=== PATIENT | male | born 1960 | race Caucasian/White ===

== ENCOUNTER → 2018-10-10 | Outpatient (CLI) | payer BC ==
--- NOTE | 2018-10-10 09:17 | US ---
EXAMINATION TYPE: US carotid duplex BILAT DATE OF EXAM: 10/10/2018 COMPARISON: NONE CLINICAL HISTORY: I10 Hypertension. vertigo, left ear fuzziness EXAM MEASUREMENTS: RIGHT: Peak Systolic Velocity (PSV) cm/sec ----- Right CCA: 83.7 ----- Right ICA: 81.1 ----- Right ECA: 101.8 ICA/CCA ratio: 1.0 RIGHT: End Diastole cm/sec ----- Right CCA: 20.2 ----- Right ICA: 22.8 ----- Right ECA: 21.5 LEFT: Peak Systolic Velocity (PSV) cm/sec ----- Left CCA: 88.9 ----- Left ICA: 91.5 ----- Left ECA: 122.6 ICA/CCA ratio: 1.0 LEFT: End Diastole cm/sec ----- Left CCA: 24.1 ----- Left ICA: 20.2 ----- Left ECA: 18.9 VERTEBRALS (direction of flow): Right Vertebral: Antegrade Left Vertebral: Antegrade Rhythm: Arrhythmia No plaque or significant stenosis. Elevated left proximal CCA. Wall thickening. IMPRESSION: No evidence for hemodynamically significant stenosis. Criteria for Assigning % of Stenosis / Diameter reduction (Estimation based on the indirect measurements of the internal carotid artery velocities (ICA PSV). 1. Normal (no stenosis)=ICA PSV < 125 cm/s: ratio < 2.0: ICA EDV<40 cm/s. 2. Less than 50% stenosis=ICA PSV < 125 cm/s: ratio < 2.0: ICA EDV<40 cm/s. 3. 50 to 69% stenosis=ICA PSV of 125 to 230 cm/s: ration 2.0 ? 4.0: ICA EDV 40-100 cm/s. 4. Greater than 70% stenosis to near occlusion= ICA PSV > 230 cm/s: ratio > 4.0: ICA EDV > 100 cm/s. 5. Near occlusion= ICA PSV velocities may be low or undetectable: variable ratio and ICA EDV. 6. Total occlusion=unable to detect flow.
== END | disposition home or self-care (01) ==
LOC: RADUSMAIN 08:28
PROVIDERS: ATTEND Family Medicine
DX: I10 Essential (primary) hypertension (principal)
CPT/HCPCS: 93880

== ENCOUNTER → 2018-10-28 | Outpatient (CLI) | payer BC ==
--- NOTE | 2018-10-28 09:12 | CT ---
EXAMINATION TYPE: CT iac wo con DATE OF EXAM: 10/28/2018 COMPARISON: HISTORY: 58-year-old male tinnitus, left ear fullness CT DLP: 150 mGycm Automated exposure control for dose reduction was used. TECHNIQUE: Contiguous high-resolution axial scanning of the temporal bones performed without contras t. Coronal reformatted images obtained. FINDINGS: There is no evident abnormality of visualized intracranial structures by thin sections noncontrast CT technique. The skull base appears normal. External auditory canals are patent. The middle ear cavities are well pneumatized. There is minimal fluid trapped within some of the anterior left mastoid air cells, refer to axial demond ge 47. Otherwise, the mastoid air cells are well pneumatized. There is no abnormality of middle ear ossicles. The round and oval windows are normal. There is no abnormality of bony labyrinths. No dehiscence of the superior semicircular canals. The vestibular aqueduct are well visualized. The facial nerve canal is normal bilaterally. The internal auditory canal and meati are symmetrical bilaterally. There is no evidence of fractures. Trace mucosal thickening ethmoid air cells. Reformatted images confirm above findings. IMPRESSION: 1. Only a small amount of trapped fluid in the anterior most left mastoid air cells. Questionable cli nical significance. Correlate for any pain here to exclude mastoiditis. 2. Otherwise, unremarkable temporal bone CT.
== END | disposition home or self-care (01) ==
LOC: RADCTMAIN 08:19
PROVIDERS: ATTEND Otolaryngology
DX: H74.8X2 Other specified disorders of left middle ear and mastoid (principal); H93.12 Tinnitus, left ear; H91.92 Unspecified hearing loss, left ear
CPT/HCPCS: 70480

== ENCOUNTER 2019-07-06 07:44 | Day surgery (SDC) | payer BC ==
[2019-07-02 10:24] VITALS: BMI 24.3
[~2019-07-06 07:44] MED LIST: LACTATED RINGERS 1,000 ML IV SCH
[2019-07-06 07:59] VITALS: RESP 18; TEMP 97.8
[2019-07-06] MEDS ORDERED: LIDOCAINE 1% 20 ML VIAL (10MG/ML) FOR IV START INTRADERMA ONE (08:05)
[2019-07-06] MEDS ORDERED: LACTATED RINGERS 1,000 ML IV ONE (08:05)
[2019-07-06] MEDS ORDERED: PROPOFOL 10 MG/ML 20 ML VIAL IV ONE (08:36)
--- NOTE | 2019-07-06 09:09 | P.PCN ---
Date of Procedure: 07/06/19 Description of Procedure: BRIEF HISTORY: Patient is a 58-year-old pleasant male scheduled for an elective colonoscopy as a part of screening for malignant neoplasm of the colon. Patient reports last colonoscopy approximately 10 years ago and normal. Denies any change in bowel habits, blood per rectum or abdominal pain. No family history of colon cancer. PROCEDURE PERFORMED: Colonoscopy. PREOPERATIVE DIAGNOSIS: Screening for malignant neoplasm of the colon. ESTIMATED BLOOD LOSS: Minimal. IV sedation per Anesthesia. PROCEDURE: After informed consent was obtained, the patient, was brought into the endoscopy unit. IV sedation was administered by Anesthesia under continuous monitoring. Digital rectal examination was normal. Initially the Olympus CF-190 flexible video colonoscope was then inserted in the rectum, gradually advanced into the cecum without any difficulty. Careful examination was performed as the scope was gradually being withdrawn. Ileocecal valve and the appendiceal orifice were visualized and appeared normal. The terminal ileum was intubated and appeared n ormal. Prep was excellent. Mucosa of the cecum, ascending colon, transverse colon, descending colon, sigmoid colon, and rectum appeared normal. Multiple small and large mouth diverticula noted in the sigmoid colon. Retroflexion was performed in the rectum and no lesions were seen. The patient tolerated the procedure well. IMPRESSION: Normal-appearing colon from rectum to cecum and terminal ileum. Mild sigmoid diverticulosis. RECOMMENDATIONS: Findings of this examination were discussed with the patient and his . Okay to resume diet and medications. Would recommend repeat colonoscopy in 10 years for screening, or sooner if signs or symptoms which warrant further evaluation develop.
[2019-07-06 09:26] VITALS: BP 138/84; PULSE 54
== END 2019-07-06 09:40 | disposition home or self-care (01) ==
LOC: ORWHC2ENDO 07:44
PROVIDERS: ATTEND Internal Medicine
DX: Z12.11 Encounter for screening for malignant neoplasm of colon (principal); K57.30 Diverticulosis of large intestine without perforation or abscess without bleeding; I10 Essential (primary) hypertension; Z87.891 Personal history of nicotine dependence; Z79.899 Other long term (current) drug therapy
CPT/HCPCS: J2704; G0121

== ENCOUNTER 2021-07-31 19:21 | Inpatient (IN) | payer BC, OTHER ==
[2021-07-31] MEDS ORDERED: SODIUM CHLORIDE 0.9% 1,000 ML IV STA (21:27)
[2021-07-31] MEDS ORDERED: DIPH,PERTUS(ACELL)TETVAC-LF 0.5 ML VIAL IM ONE (21:28)
--- NOTE | 2021-07-31 21:37 | ED ---
General Adult HPI - General Chief complaint: Syncope Stated complaint: Hit head, dry mouth, Flu Time Seen by Provider: 07/31/21 21:15 Source: patient, family, RN notes reviewed, old records reviewed Mode of arrival: ambulatory Limitations: no limitations - History of Present Illness Initial comments: This is a well-appearing 60-year-old male that presents to the emergency room with complaints of having a syncopal episode last night at 3 AM. Patient states that he woke up at 3 AM feeling clammy with a burning sensation in his chest. Patient states he got up to go to the bathroom and had a syncopal episode hitting his back of his head on the toilet. He states that he returned back to bed stating he did not want to come to the hospital because he doesn't like it at the hospital. Patient states that he had another episode of feeling dizzy and faint and clammy today so he came in. Patient does have a history of hypertension. He has never had these symptoms before. He denies any chest pain at this time. He stated he is not sure if this tetanus shot is up-to-date. He denies any headache at this time. Denies shortness of breath. He has not been vaccinated does not want to be tested for coronavirus. -: hour(s) (18) Location: head Severity scale (1-10): 0 Consistency: now resolved Improves with: none Worsens with: none Associated Symptoms: malaise, syncope Treatments Prior to Arrival: none - Related Data Home Medications Medication Instructions Recorded Confirmed Ascorbic Acid [Vitamin C] 1,000 mg PO DAILY 07/02/19 07/31/21 Magnesium 400 mg PO DAILY 07/02/19 07/31/21 Turmeric Root Extract [Turmeric] 500 mg PO DAILY 07/02/19 07/31/21 Ubidecarenone [Co Q-10] 200 mg PO DAILY 07/02/19 07/31/21 Methylsulfonylmethane [MSM] 900 mg PO DAILY 07/31/21 07/31/21 Quercetin With Bromelain 1 tab PO DAILY 07/31/21 07/31/21 Super Enzymes 1 tab PO DAILY 07/31/21 07/31/21 Triamterene/Hydrochlorothiazid 1 tab PO DAILY 07/31/21 07/31/21 [Triamterene-Hctz 37.5-25 mg Tb] Vitamin D3 + K2 1 tab PO DAILY 07/31/21 07/31/21 Zinc 50 mg PO DAILY 07/31/21 07/31/21 Allergies Allergy/AdvReac Type Severity Reaction Status Date / Time No Known Allergies Allergy Verified 07/31/21 22:24 Review of Systems ROS Statement: Those systems with pertinent positive or pertinent negative responses have been documented in the HPI. ROS Other: All systems not noted in ROS Statement are negative. Past Medical History Past Medical History: Hypertension Additional Past Medical History / Comment(s): seasonal allergies History of Any Multi-Drug Resistant Organisms: None Reported Past Surgical History: No Surgical Hx Reported Additional Past Surgical History / Comment(s): colonoscopy,cystoscopy Past Anesthesia/Blood Transfusion Reactions: No Reported Reaction Past Psychological History: Anxiety Smoking Status: Never smoker Past Alcohol Use History: Occasional Past Drug Use History: None Reported - Past Family History Mother Family Medical History: Cancer Additional Family Medical History / Comment(s): kidney cancer Father Family Medical History: Cancer Additional Family Medical History / Comment(s): breast cancer Sister(s) Family Medical History: Cancer Additional Family Medical History / Comment(s): breast cancer General Exam Limitations: no limitations General appearance: alert, in no apparent distress Head exam: Present: normocephalic, other (Approximately 1 cm laceration to the occiput dried scale no active bleeding) Eye exam: Present: normal appearance, EOMI. Absent: scleral icterus, conjunctival injection, periorbital swelling, periorbital tenderness ENT exam: Present: normal exam, normal oropharynx, mucous membranes moist Neck exam: Present: normal inspection, full ROM. Absent: tenderness, meningismus, lymphadenopathy, thyromegaly Respiratory exam: Present: normal lung sounds bilaterally. Absent: respiratory distress, wheezes, rales, rhonchi, stridor, chest wall tenderness, accessory muscle use, decreased breath sounds Cardiovascular Exam: Present: regular rate, normal rhythm, normal heart sounds. Absent: systolic murmur, diastolic murmur, rubs, gallop, clicks GI/Abdominal exam: Present: soft, normal bowel sounds. Absent: distended, tenderness, guarding, rebound, rigid Extremities exam: Present: normal inspection, full ROM, normal capillary refill. Absent: tenderness, pedal edema, joint swelling, calf tenderness Back exam: Present: normal inspection, full ROM. Absent: tenderness, CVA tenderness (R), CVA tenderness (L), rash noted Expanded Back exam: Present: saddle anesthesia Back exam: Negative Straight Leg Raising: Left, Right Neurological exam: Present: alert, oriented X3 Expanded Patient oriented to: Present: person, place, time Speech: Present: fluid speech Cranial nerves: EOM's Intact: Normal Motor strength exam: RUE: 5, LUE: 5, RLE: 5, LLE: 5 Eye Response: (4) open spontaneously Motor Response: (6) obeys commands Verbal Response: (5) oriented Jaquan Total: 15 Psychiatric exam: Present: normal affect, normal mood Skin exam: Present: warm, dry, normal color. Absent: rash, cyanosis, diaphoretic Course Vital Signs 07/31/21 20:56 Temperature 98.2 F Pulse Rate 76 Respiratory 22 Rate Blood Pressure 190/95 O2 Sat by Pulse 95 Oximetry EKG Findings - EKG Results: EKG: sinus rhythm (Ventricular rate of 75, MD interval 0.160, QRS 0.94, QTC 0.433) Medical Decision Making - Medical Decision Making 60-year-old male, alert and oriented 4 and well-appearing, presents to the emergency room after having a syncopal episode last night at 3 AM. Patient states that he fell in the bathroom and hit his head on the toilet. He did sustain a 1 cm laceration to his occiput. It is well approximated and scabbed over no active bleeding. Tetanus shot was updated at this visit. He does have a history of hypertension and has been taking triamterene for the past 2 years. No recent dose changes. He denies any headache or focal neurological deficits. He states that he had a second episode of feeling clammy chest burning and near syncope today. CT of the brain shows no mass or midline shift, there is no intracranial hemorrhage. Skull base is intact. X-ray of the chest shows a normal heart mediastinum, lungs are clear. EKG shows normal sinus rhythm, troponin is negative at 0.012. Electrolytes show a sodium of 128, and he does take triamterene and has been on it for a couple of years. He states that he did not take his blood pressure medicine today. He has no history of hyponatremia. He will be admitted for syncope and hyponatremia. He is agreeable to this plan of care. I did discuss this case with Dr. Stoddard. - Lab Data Result diagrams: 07/31/21 21:35 07/31/21 21:35 Lab Results 07/31/21 07/31/21 07/31/21 Range/Units 21:35 21:35 21:35 WBC 7.7 (3.8-10.6) k/uL RBC 4.49 (4.30-5.90) m/uL Hgb 14.7 (13.0-17.5) gm/dL Hct 43.5 (39.0-53.0) % MCV 96.7 (80.0-100.0) fL MCH 32.6 (25.0-35.0) pg MCHC 33.7 (31.0-37.0) g/dL RDW 12.2 (11.5-15.5) % Plt Count 165 (150-450) k/uL MPV 8.7 Neutrophils % 74 % Lymphocytes % 15 % Monocytes % 8 % Eosinophils % 0 % Basophils % 1 % Neutrophils # 5.7 (1.3-7.7) k/uL Lymphocytes # 1.2 (1.0-4.8) k/uL Monocytes # 0.6 (0-1.0) k/uL Eosinophils # 0.0 (0-0.7) k/uL Basophils # 0.0 (0-0.2) k/uL PT 10.3 (9.0-12.0) sec INR 1.0 (<1.2) APTT 24.9 (22.0-30.0) sec Sodium (137-145) mmol/L Potassium (3.5-5.1) mmol/L Chloride (98-107) mmol/L Carbon Dioxide (22-30) mmol/L Anion Gap mmol/L BUN (9-20) mg/dL Creatinine (0.66-1.25) mg/dL Est GFR (CKD-EPI)AfAm (>60 ml/min/1.73 sqM) Est GFR (CKD-EPI)NonAf (>60 ml/min/1.73 sqM) Glucose (74-99) mg/dL Calcium (8.4-10.2) mg/dL Magnesium (1.6-2.3) mg/dL Total Bilirubin (0.2-1.3) mg/dL AST (17-59) U/L ALT (4-49) U/L Alkaline Phosphatase (38-126) U/L Troponin I (0.000-0.034) ng/mL Total Protein (6.3-8.2) g/dL Albumin (3.5-5.0) g/dL Urine Color Light Yellow Urine Appearance Clear (Clear) Urine pH 6.0 (5.0-8.0) Ur Specific [place] 1.011 (1.001-1.035) Urine Protein Negative (Negative) Urine Glucose (UA) Negative (Negative) Urine Ketones Trace H (Negative) Urine Blood Trace H (Negative) Urine Nitrite Negative (Negative) Urine Bilirubin Negative (Negative) Urine Urobilinogen <2.0 (<2.0) mg/dL Ur Leukocyte Esterase Negative (Negative) Urine RBC 3 (0-5) /hpf Urine WBC <1 (0-5) /hpf Urine Mucus Rare H (None) /hpf 07/31/21 07/31/21 Range/Units 21:35 21:35 WBC (3.8-10.6) k/uL RBC (4.30-5.90) m/uL Hgb (13.0-17.5) gm/dL Hct (39.0-53.0) % MCV (80.0-100.0) fL MCH (25.0-35.0) pg MCHC (31.0-37.0) g/dL RDW (11.5-15.5) % Plt Count (150-450) k/uL MPV Neutrophils % % Lymphocytes % % Monocytes % % Eosinophils % % Basophils % % Neutrophils # (1.3-7.7) k/uL Lymphocytes # (1.0-4.8) k/uL Monocytes # (0-1.0) k/uL Eosinophils # (0-0.7) k/uL Basophils # (0-0.2) k/uL PT (9.0-12.0) sec INR (<1.2) APTT (22.0-30.0) sec Sodium 128 L (137-145) mmol/L Potassium 4.0 (3.5-5.1) mmol/L Chloride 95 L (98-107) mmol/L Carbon Dioxide 25 (22-30) mmol/L Anion Gap 8 mmol/L BUN 15 (9-20) mg/dL Creatinine 0.94 (0.66-1.25) mg/dL Est GFR (CKD-EPI)AfAm >90 (>60 ml/min/1.73 sqM) Est GFR (CKD-EPI)NonAf 87 (>60 ml/min/1.73 sqM) Glucose 109 H (74-99) mg/dL Calcium 8.9 (8.4-10.2) mg/dL Magnesium 1.8 (1.6-2.3) mg/dL Total Bilirubin 0.4 (0.2-1.3) mg/dL AST 35 (17-59) U/L ALT 24 (4-49) U/L Alkaline Phosphatase 72 (38-126) U/L Troponin I <0.012 (0.000-0.034) ng/mL Total Protein 7.0 (6.3-8.2) g/dL Albumin 4.0 (3.5-5.0) g/dL Urine Color Urine Appearance (Clear) Urine pH (5.0-8.0) Ur Specific [place] (1.001-1.035) Urine Protein (Negative) Urine Glucose (UA) (Negative) Urine Ketones (Negative) Urine Blood (Negative) Urine Nitrite (Negative) Urine Bilirubin (Negative) Urine Urobilinogen (<2.0) mg/dL Ur Leukocyte Esterase (Negative) Urine RBC (0-5) /hpf Urine WBC (0-5) /hpf Urine Mucus (None) /hpf Disposition Clinical Impression: Hyponatremia, Syncope Disposition: ADMITTED IP TO THIS [facility] Referrals: Sophie Porras MD [Primary Care Provider] - 1-2 days Decision Date: 07/31/21 Decision Time: 22:56
[2021-07-31 21:57] LABS: Basophils % (A) 1 %; Eosinophils % (A) 0 %; HCT 43.5 % (39.0-53.0); HGB 14.7 gm/dL (13.0-17.5); Lymphocytes # (A) 1.2 k/uL (1.0-4.8); Lymphocytes % (A) 15 %; MCH 32.6 pg (25.0-35.0); MCHC 33.7 g/dL (31.0-37.0); MCV 96.7 fL (80.0-100.0); Mean Platelet Volume 8.7; Monocytes # (A) 0.6 k/uL (0-1.0); Monocytes % (A) 8 %; Neutrophils # (A) 5.7 k/uL (1.3-7.7); Neutrophils % (A) 74 %; Platelet Count 165 k/uL (150-450); RBC 4.49 m/uL (4.30-5.90); RDW 12.2 % (11.5-15.5); WBC 7.7 k/uL (3.8-10.6)
[2021-07-31 21:58] LABS: Appearance,Urine Clear (Clear); Bilirubin,Urine Negative (Negative); Blood,Urine Trace (Negative); Color,Urine Light Yellow; Glucose,Urine (UA) Negative (Negative); Ketones,Urine Trace (Negative); Leukocyte Esterase,Urine Negative (Negative); Mucus,Urine Rare /hpf; Nitrite,Urine Negative (Negative); Protein,Urine Negative (Negative); RBC,Urine 3 /hpf (0-5); Specific Gravity,Urine 1.011 (1.001-1.035); Urobilinogen,Urine <2.0 mg/dL (<2.0); WBC,Urine <1 /hpf (0-5)
--- NOTE | 2021-07-31 22:01 | XR ---
EXAMINATION TYPE: XR chest 2V DATE OF EXAM: 07/31/2021 COMPARISON: NONE HISTORY: Syncope TECHNIQUE: FINDINGS: Heart and mediastinum are normal. Lungs are clear. Diaphragm is normal. There are chest robert ds. Bony thorax is intact. IMPRESSION: Normal chest.
--- NOTE | 2021-07-31 22:03 | CT ---
EXAMINATION TYPE: CT brain wo con DATE OF EXAM: 07/31/2021 COMPARISON: None HISTORY: Syncope, head injury, LOC CT DLP: 1129.4 mGycm Automated exposure control for dose reduction was used. Ventricles have normal size. There is no mass effect nor midline shift. There is no sign of intracran ial hemorrhage. There is mild cerebral atrophy. The calvarium is intact. Skull base is intact. There is normal aeration of the mastoid sinuses. IMPRESSION: Negative unenhanced head CT scan.
[2021-07-31 22:06] LABS: Partial Thromboplastin Time 24.9 sec (22.0-30.0); Prothrombin Time 10.3 sec (9.0-12.0)
[2021-07-31 22:15] LABS: ALT 24 U/L (4-49); AST 35 U/L (17-59); African American GFR (CKD) >90 (>60 ml/min/1.73 sqM); Alkaline Phosphatase 72 U/L (38-126); Anion Gap 8 mmol/L; Blood Urea Nitrogen 15 mg/dL (9-20); Calcium 8.9 mg/dL (8.4-10.2); Carbon Dioxide 25 mmol/L (22-30); Chloride 95 mmol/L (98-107); Glucose 109 mg/dL (74-99); Magnesium 1.8 mg/dL (1.6-2.3); Non-African American GFR(CKD) 87 (>60 ml/min/1.73 sqM); Sodium 128 mmol/L (137-145); Total Bilirubin 0.4 mg/dL (0.2-1.3)
[2021-07-31] MEDS ORDERED: NALOXONE 0.4 MG/ML 1 ML VIAL IV PRN (22:54)
[2021-07-31] MEDS ORDERED: IBUPROFEN 400 MG TAB PO PRN (22:54)
[2021-08-01] MEDS: ASCORBIC ACID 500 MG TAB PO SCH (10:47)
[2021-08-01] MEDS: MAGNESIUM OXIDE 400 MG TAB PO SCH (10:47)
[2021-08-01] MEDS: ZINC SULFATE 220 MG CAP PO SCH (10:47)
[2021-08-01] MEDS: ACETAMINOPHEN TAB 325 MG TAB PO PRN (16:15)
[2021-08-01] MEDS ORDERED: SODIUM CHLORIDE 0.9% 1,000 ML IV STA (18:26)
--- NOTE | 2021-08-01 18:26 | P.HPIM ---
History of Present Illness H&P Date: 08/01/21 Joshua Machado is a year old male who presented to [facility] emergency room with a chief complaint of syncope, patient stated that he was at home going to the bathroom when he felt flushing in the face and numbness in the tips of his fingers and then he passed out and fell to the floor he states that he hit his head on the toilet, he regained consciousness after an unknown period of time he called EMS and was brought into emergency room. He was evaluated in the emergency room vital examination on presentation revealed a temperature of 98.2 pulse 76 respiration 22 blood pressure 190/95 pulse ox 95% on room air Laboratory data revealed a white blood count of 7.7 hemoglobin 14.7 platelet count 165 sodium 128 potassium 4.0 chloride 95 CO2 25 BUN 15 creatinine 0.95 COVID-19 PCR testing was positive Testing in the emergency room revealed EKG done in the emergency room revealed normal sinus rhythm with incomplete right bundle branch block, chest x-ray done in the emergency room revealed normal findings, computed tomography scan of the brain was done in the emergency room due to history of fall with head injury and revealed normal findings. Patient was admitted to medical floor for further evaluation and treatment Past Medical History Past Medical History: Hypertension Additional Past Medical History / Comment(s): seasonal allergies History of Any Multi-Drug Resistant Organisms: None Reported Past Surgical History: No Surgical Hx Reported Additional Past Surgical History / Comment(s): colonoscopy,cystoscopy Past Anesthesia/Blood Transfusion Reactions: No Reported Reaction Past Psychological History: Anxiety Smoking Status: Never smoker Past Alcohol Use History: Occasional Additional Past Alcohol Use History / Comment(s): smoked 10 years 1 pack/wk quit 30 years ago Past Drug Use History: None Reported Additional Drug Use History / Comment(s): cbd oil - Past Family History Mother Family Medical History: Cancer Additional Family Medical History / Comment(s): kidney cancer Father Family Medical History: Cancer Additional Family Medical History / Comment(s): breast cancer Sister(s) Family Medical History: Cancer Additional Family Medical History / Comment(s): breast cancer Medications and Allergies Home Medications Medication Instructions Recorded Confirmed Type Ascorbic Acid [Vitamin C] 1,000 mg PO DAILY 07/02/19 07/31/21 History Magnesium 400 mg PO DAILY 07/02/19 07/31/21 History Turmeric Root Extract [Turmeric] 500 mg PO DAILY 07/02/19 07/31/21 History Ubidecarenone [Co Q-10] 200 mg PO DAILY 07/02/19 07/31/21 History Methylsulfonylmethane [MSM] 900 mg PO DAILY 07/31/21 07/31/21 History Quercetin With Bromelain 1 tab PO DAILY 07/31/21 07/31/21 History Super Enzymes 1 tab PO DAILY 07/31/21 07/31/21 History Triamterene/Hydrochlorothiazid 1 tab PO DAILY 07/31/21 07/31/21 History [Triamterene-Hctz 37.5-25 mg Tb] Vitamin D3 + K2 1 tab PO DAILY 07/31/21 07/31/21 History Zinc 50 mg PO DAILY 07/31/21 07/31/21 History Allergies Allergy/AdvReac Type Severity Reaction Status Date / Time No Known Allergies Allergy Verified 07/31/21 22:24 Physical Exam Vitals: Vital Signs Temp Pulse Pulse Resp BP BP Pulse Ox 08/01/21 03:00 76 20 140/86 96 08/01/21 01:11 99.2 F 75 18 159/93 97 08/01/21 00:00 74 20 156/90 96 07/31/21 22:00 71 20 163/93 95 07/31/21 20:56 98.2 F 76 22 190/95 95 Intake and Output 07/31/21 08/01/21 08/01/21 22:59 06:59 14:59 Other: Weight 72.575 kg 72.575 kg In general patient is alert and oriented x 3 in no distress HEENT head normocephalic and atraumatic Neck is supple no JVD no goiter no lymphadenopathy no carotid bruit Chest examination is clear to auscultation no crackles no wheezing Cardiac exam reveals regular heart sounds S1 and S2 no gallops no murmurs Abdomen is soft nontender no organomegaly with normal bowel sounds Extremity exam reveals no edema no cyanosis or clubbing Neurological examination reveals no gross focal deficits Results CBC & Chem 7: 07/31/21 21:35 07/31/21 21:35 Labs: Abnormal Lab Results - Last 24 Hours (Table) 07/31/21 07/31/21 08/01/21 Range/Units 21:35 21:35 00:17 Sodium 128 L (137-145) mmol/L Chloride 95 L (98-107) mmol/L Glucose 109 H (74-99) mg/dL Urine Ketones Trace H (Negative) Urine Blood Trace H (Negative) Urine Mucus Rare H (None) /hpf Coronavirus (PCR) Detected A (Not Detectd) Thrombosis Risk Factor Assmnt - Choose All That Apply Any of the Below Risk Factors Present?: Yes Each Factor Represents 1 point: Age 41-60 years, Serious lung disease incl. pneumonia (< 1month) Thrombosis Risk Factor Assessment Total Risk Factor Score: 2 Thrombosis Risk Factor Assessment Level: Low Risk Assessment and Plan Plan: Episode of syncope Hyponatremia on presentation COVID-19 PCR testing positive on presentation Underlying history of hypertension At this time patient will be admitted to telemetry floor Cardiology consultation was requested in regards to syncope, will check echocardiogram and carotid Doppler Pulmonary critical care consultation requested in that regard to positive COVID- 19 PCR testing Will follow closely
[2021-08-02] MEDS: MAGNESIUM OXIDE 400 MG TAB PO SCH (08:22)
[2021-08-02] MEDS: ASCORBIC ACID 500 MG TAB PO SCH (08:22)
[2021-08-02] MEDS: ZINC SULFATE 220 MG CAP PO SCH (08:22)
--- NOTE | 2021-08-02 08:31 | ECHOF ---
Referral Reason:syncope, + Covid MEASUREMENTS -------- HEIGHT: 175.3 cm WEIGHT: 72.6 kg BP: RVIDd: 2.7 cm (< 3.3) IVSd: 0.8 cm (0.6 - 1.1) LVIDd: 3.7 cm (3.9 - 5.3) LVPWd: 0.9 cm (0.6 - 1.1) IVSs: 1.4 cm LVIDs: 1.8 cm LVPWs: 1.6 cm LAESV Index (A-L): 16.04 ml/m Ao Diam: 2.6 cm (2.0 - 3.7) AV Cusp: 1.8 cm (1.5 - 2.6) LA Diam: 3.3 cm (2.7 - 3.8) MV EXCURSION: 19.089 mm (> 18.000) MV EF SLOPE: 118 mm/s (70 - 150) EPSS: 0.6 cm MV E Mathieu: 0.83 m/s MV DecT: 114 ms MV A Mathieu: 0.76 m/s MV E/A Ratio: 1.09 RAP: 5.00 mmHg RVSP: 35.45 mmHg FINDINGS -------- This was a technically good study. The left ventricular size is normal. Left ventricular wall thickness is normal. Overall left vent ricular systolic function is normal with, an EF between 55 - 60 %. The diastolic filling pattern is normal for the age of the patient 8.62. The right ventricle is normal in size. The left atrial size is normal. Normal LA size by volume 22+/-6 ml/m2. The right atrial size is normal. The aortic valve is trileaflet and appears structurally normal. The mitral valve is normal. Mild mitral regurgitation is present. The tricuspid valve appears structurally normal. Mild tricuspid regurgitation present. Right vent ricular systolic pressure is normal at < 35 mmHg. The pulmonic valve was not well visualized. The aortic root size is normal. Normal inferior vena cava with normal inspiratory collapse consistent with estimated right atrial pre ssure of 5 mmHg. There is no pericardial effusion. CONCLUSIONS -------- 1. The left ventricular size is normal. 2. Left ventricular wall thickness is normal. 3. Overall left ventricular systolic function is normal with, an EF between 55 - 60 %. 4. The diastolic filling pattern is normal for the age of the patient 8.62 5. Mild mitral regurgitation is present. 6. Mild tricuspid regurgitation present. 7. There is no pericardial effusion. MATTRESS FILLING MACHINE TENDER: Yolande Van RDCS
[2021-08-02 09:40] LABS: Glucose,Whole Blood 144 mg/dL (75-99)
--- NOTE | 2021-08-02 11:05 | P.CNPUL ---
History of Present Illness Consult date: 08/02/21 Requesting physician: Seven Raymond Reason for consult: other (COVID-19 infection) Chief complaint: Dizziness, clammy, syncope History of present illness: This is a very pleasant 60-year-old male patient who follows with Dr. meneses as his primary care provider. He has a history of hypertension, anxiety. Nonsmoker. He presented to the emergency room on 07/31/2021 after having a syncopal episode at 3 AM earlier that same morning. He felt clammy and a burning sensation in his chest. He had gotten up to go the bathroom passed out and hit his head on the toilet. He initially didn't want to come to the hospital. He was having ongoing issues with dizziness feeling faint and clamminess and presented here for the same. Computed tomography scan of the brain revealed no acute abnormalities. X-ray revealed no acute abnormalities. EKG did not reveal any significant ST or T wave abnormalities. Echocardiogram revealed preserved left ventricular systolic function with ejection fraction 55- 60%. No significant valvular abnormalities. White count 7.7. Hemoglobin 14.7. Sodium 128. Potassium 4.0. Creatinine 0.94. Troponin negative 1. Glucose 144. Craig virus by PCR positive. He is seen today in consultation on the observation unit. He is awake and alert in no acute distress. He is maintaining good O2 saturations in the 90s on room air. He's afebrile. Hemodynamically stable. Review of Systems REVIEW OF SYSTEMS: CONSTITUTIONAL: Denies any recent significant weight loss or weight gain. EYES: Denies change in vision. EARS, NOSE, MOUTH, THROAT: Denies headaches, denies sore throat. CARDIOVASCULAR: Positive for syncope, dizziness, clamminess. RESPIRATORY: Denies shortness of breath, cough, congestion or hemoptysis. GASTROINTESTINAL: Denies change in appetite, denies abdominal pain GENITOURINARY: Denies hematuria, denies infections. MUSKULOSKELETAL: Denies pain, denies swelling. INTEGUMENTARY: Denies rash, denies eczema. NEUROLOGICAL: Denies recent memory loss, no recent seizure activity. PSYCHIATRIC: Denies anxiety, denies depression. HEMATOLOGIC/LYMPHATIC: Denies anemia, denies enlarged lymph nodes. Past Medical History Past Medical History: Hypertension Additional Past Medical History / Comment(s): seasonal allergies History of Any Multi-Drug Resistant Organisms: None Reported Past Surgical History: No Surgical Hx Reported Additional Past Surgical History / Comment(s): colonoscopy,cystoscopy Past Anesthesia/Blood Transfusion Reactions: No Reported Reaction Past Psychological History: Anxiety Smoking Status: Never smoker Past Alcohol Use History: Occasional Additional Past Alcohol Use History / Comment(s): smoked 10 years 1 pack/wk quit 30 years ago Past Drug Use History: None Reported Additional Drug Use History / Comment(s): cbd oil - Past Family History Mother Family Medical History: Cancer Additional Family Medical History / Comment(s): kidney cancer Father Family Medical History: Cancer Additional Family Medical History / Comment(s): breast cancer Sister(s) Family Medical History: Cancer Additional Family Medical History / Comment(s): breast cancer Medications and Allergies Home Medications Medication Instructions Recorded Confirmed Type Ascorbic Acid [Vitamin C] 1,000 mg PO DAILY 07/02/19 07/31/21 History Magnesium 400 mg PO DAILY 07/02/19 07/31/21 History Turmeric Root Extract [Turmeric] 500 mg PO DAILY 07/02/19 07/31/21 History Ubidecarenone [Co Q-10] 200 mg PO DAILY 07/02/19 07/31/21 History Methylsulfonylmethane [MSM] 900 mg PO DAILY 07/31/21 07/31/21 History Quercetin With Bromelain 1 tab PO DAILY 07/31/21 07/31/21 History Super Enzymes 1 tab PO DAILY 07/31/21 07/31/21 History Triamterene/Hydrochlorothiazid 1 tab PO DAILY 07/31/21 07/31/21 History [Triamterene-Hctz 37.5-25 mg Tb] Vitamin D3 + K2 1 tab PO DAILY 07/31/21 07/31/21 History Zinc 50 mg PO DAILY 07/31/21 07/31/21 History Allergies Allergy/AdvReac Type Severity Reaction Status Date / Time No Known Allergies Allergy Verified 07/31/21 22:24 Physical Exam Vitals: Vital Signs Temp Pulse Pulse Resp BP BP BP 08/02/21 09:59 98 F 62 18 135/81 08/02/21 07:32 97.9 F 62 18 135/79 08/02/21 02:00 97.8 F 72 16 126/75 08/01/21 21:12 08/01/21 14:15 76 148/89 148/89 135/83 08/01/21 14:00 98.7 F 72 16 135/83 Pulse Ox 08/02/21 09:59 98 08/02/21 07:32 98 08/02/21 02:00 97 08/01/21 21:12 98 08/01/21 14:15 08/01/21 14:00 97 Intake and Output 08/01/21 08/02/21 08/02/21 22:59 06:59 14:59 Intake Total 540 Balance 540 Intake: Oral 540 Other: Voiding Method Toilet # Voids 3 2 GENERAL EXAM: Alert, very pleasant 60-year-old gentleman, on room air, comfortable in no apparent distress. HEAD: Normocephalic. EYES: Normal reaction of pupils, equal size. NOSE: Clear with pink turbinates. THROAT: No erythema or exudates. NECK: No masses, no JVD. CHEST: No chest wall deformity. LUNGS: Equal air entry with no crackles, wheeze, rhonchi or dullness. CVS: S1 and S2 normal with no audible murmur, regular rhythm. ABDOMEN: No hepatosplenomegaly, normal bowel sounds, no guarding or rigidity. SPINE: No scoliosis or deformity SKIN: No rashes CENTRAL NERVOUS SYSTEM: No focal deficits, tone is normal in all 4 extremities. EXTREMITIES: There is no peripheral edema. No clubbing, no cyanosis. Peripheral pulses are intact. Results - Laboratory Findings CBC and BMP: 07/31/21 21:35 07/31/21 21:35 PT/INR, D-dimer PT 10.3 sec (9.0-12.0) 07/31/21 21:35 INR 1.0 (<1.2) 07/31/21 21:35 Abnormal lab findings: Abnormal Labs 07/31/21 07/31/21 08/01/21 21:35 21:35 00:17 Sodium 128 L Chloride 95 L Glucose 109 H POC Glucose (mg/dL) Urine Ketones Trace H Urine Blood Trace H Urine Mucus Rare H Coronavirus (PCR) Detected A 08/02/21 09:39 Sodium Chloride Glucose POC Glucose (mg/dL) 144 H Urine Ketones Urine Blood Urine Mucus Coronavirus (PCR) - Diagnostic Findings Chest x-ray: image reviewed (No acute pulmonary process) Assessment and Plan Assessment: 1 Syncope of unclear etiology possibly related to hyponatremia and COVID-19 infection 2 COVID-19 infection 3 Hyponatremia secondary to thiazide diuretics 4 History of hypertension Plan: The patient was seen and evaluated by Dr. Mars Srivastava for discharge from the pulmonary standpoint Hold thiazide diuretic Cardiology consult pending We will see as needed I, the cosigning physician, performed a history & physical examination of the pa tient. Lungs sounds are clear. Maintaining good O2 saturations in the 90s on room air. I discussed the assessment and plan of care with my nurse practitioner, Nanda Rogel. I attest to the above consultation as dictated by her. Time with Patient: Greater than 30
--- NOTE | 2021-08-02 11:15 | P.CRDCN ---
History of Present Illness Consult date: 08/01/21 History of present illness: CHIEF COMPLAINT: Syncope HISTORY OF PRESENT ILLNESS: This is a 60-year-old male with a past medical history significant for hypertension. 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 We have been asked to see the patient in consultation for syncope. Patient presented to the hospital after having a syncopal episode yesterday morning after using the bathroom. The patient was found to be positive for Covid. He is unvaccinated. Patient states he has was not feeling well at home with some respiratory symptoms. He states he was sleeping in a different room at home due to not feeling well. He reports walking to the bathroom and the next thing he knows he woke up on the bathroom floor. Patient states he has been eating and drinking well. Echo reveals EF 55-60%, Mild MR, and Mild TR. Denies any previous episodes of syncope. Reports a history of Vertigo. DIAGNOSTICS: EKG reveals sinus mechanism with incomplete right bundle branch block. Chest xray negative for acute process Laboratory data: WBC 7.7. Hemoglobin 14.7. Platelet count 165. Sodium 128. Potassium 4.0. BUN 15. Creatinine 0.64. Magnesium 1.8. Troponin negative 1. Current home cardiac medications include Triamterene-HCTZ 37.5-25mg daily REVIEW OF SYSTEMS: Thorough review of systems not completed secondary to limited evaluation/examination due to Covid19 PHYSICAL EXAM: Thorough physical exam not completed secondary to limited evaluation/examination due to Covid19 ASSESSMENT: Acute Covid 19 Syncope Hyponatremia Hypertension History of vertigo PLAN: Orthostatics obtained and unremarkable 2D echo obtained and reviewed Continue telemetry monitoring Check D-Dimer to rule out PE. If abnormal, will obtain chest CTA Further recommendations pending patient course Nurse practitioner note has been reviewed by physician. Signing provider agrees with the documented findings, assessment, and plan of care. Past Medical History Past Medical History: Hypertension Additional Past Medical History / Comment(s): seasonal allergies History of Any Multi-Drug Resistant Organisms: None Reported Past Surgical History: No Surgical Hx Reported Additional Past Surgical History / Comment(s): colonoscopy,cystoscopy Past Anesthesia/Blood Transfusion Reactions: No Reported Reaction Past Psychological History: Anxiety Smoking Status: Never smoker Past Alcohol Use History: Occasional Additional Past Alcohol Use History / Comment(s): smoked 10 years 1 pack/wk quit 30 years ago Past Drug Use History: None Reported Additional Drug Use History / Comment(s): cbd oil - Past Family History Mother Family Medical History: Cancer Additional Family Medical History / Comment(s): kidney cancer Father Family Medical History: Cancer Additional Family Medical History / Comment(s): breast cancer Sister(s) Family Medical History: Cancer Additional Family Medical History / Comment(s): breast cancer Medications and Allergies Home Medications Medication Instructions Recorded Confirmed Type Ascorbic Acid [Vitamin C] 1,000 mg PO DAILY 07/02/19 07/31/21 History Magnesium 400 mg PO DAILY 07/02/19 07/31/21 History Turmeric Root Extract [Turmeric] 500 mg PO DAILY 07/02/19 07/31/21 History Ubidecarenone [Co Q-10] 200 mg PO DAILY 07/02/19 07/31/21 History Methylsulfonylmethane [MSM] 900 mg PO DAILY 07/31/21 07/31/21 History Quercetin With Bromelain 1 tab PO DAILY 07/31/21 07/31/21 History Super Enzymes 1 tab PO DAILY 07/31/21 07/31/21 History Triamterene/Hydrochlorothiazid 1 tab PO DAILY 07/31/21 07/31/21 History [Triamterene-Hctz 37.5-25 mg Tb] Vitamin D3 + K2 1 tab PO DAILY 07/31/21 07/31/21 History Zinc 50 mg PO DAILY 07/31/21 07/31/21 History Allergies Allergy/AdvReac Type Severity Reaction Status Date / Time No Known Allergies Allergy Verified 07/31/21 22:24 Physical Exam Vitals: Vital Signs Temp Pulse Pulse Resp BP BP Pulse Ox 08/01/21 03:00 76 20 140/86 96 08/01/21 01:11 99.2 F 75 18 159/93 97 08/01/21 00:00 74 20 156/90 96 07/31/21 22:00 71 20 163/93 95 07/31/21 20:56 98.2 F 76 22 190/95 95 Intake and Output 07/31/21 08/01/21 08/01/21 22:59 06:59 14:59 Other: Weight 72.575 kg 72.575 kg Results 07/31/21 21:35 07/31/21 21:35 Cardiac Enzymes 07/31/21 07/31/21 Range/Units 21:35 21:35 AST 35 (17-59) U/L Troponin I <0.012 (0.000-0.034) ng/mL Coagulation 07/31/21 Range/Units 21:35 PT 10.3 (9.0-12.0) sec APTT 24.9 (22.0-30.0) sec CBC 07/31/21 Range/Units 21:35 WBC 7.7 (3.8-10.6) k/uL RBC 4.49 (4.30-5.90) m/uL Hgb 14.7 (13.0-17.5) gm/dL Hct 43.5 (39.0-53.0) % Plt Count 165 (150-450) k/uL Comprehensive Metabolic Panel 07/31/21 Range/Units 21:35 Sodium 128 L (137-145) mmol/L Potassium 4.0 (3.5-5.1) mmol/L Chloride 95 L (98-107) mmol/L Carbon Dioxide 25 (22-30) mmol/L BUN 15 (9-20) mg/dL Creatinine 0.94 (0.66-1.25) mg/dL Glucose 109 H (74-99) mg/dL Calcium 8.9 (8.4-10.2) mg/dL AST 35 (17-59) U/L ALT 24 (4-49) U/L Alkaline Phosphatase 72 (38-126) U/L Total Protein 7.0 (6.3-8.2) g/dL Albumin 4.0 (3.5-5.0) g/dL Current Medications Generic Name Dose Route Start Last Admin Trade Name Freq PRN Reason Stop Dose Admin Acetaminophen 650 mg 07/31/21 22:54 Acetaminophen Tab 325 Mg Tab PO Q6HR PRN Mild Pain or Fever > 100.5 Ascorbic Acid 1,000 mg 08/01/21 10:30 08/01/21 10:47 Ascorbic Acid 500 Mg Tab PO 1,000 mg DAILY LISSETTE Administration Ibuprofen 400 mg 07/31/21 22:54 Ibuprofen 400 Mg Tab PO Q6HR PRN Mild Pain or Fever > 100.5 Magnesium Oxide 400 mg 08/01/21 10:30 08/01/21 10:47 Magnesium Oxide 400 Mg Tab PO 400 mg DAILY LISSETTE Administration Naloxone HCl 0.2 mg 07/31/21 22:54 Naloxone 0.4 Mg/Ml 1 Ml Vial IV Q2M PRN Opioid Reversal Zinc Sulfate 220 mg 08/01/21 10:30 08/01/21 10:47 Zinc Sulfate 220 Mg Cap PO 220 mg DAILY LISSETTE Administration Intake and Output 07/31/21 08/01/21 08/01/21 22:59 06:59 14:59 Other: Weight 72.575 kg 72.575 kg 07/31/21 21:35 07/31/21 21:35
[2021-08-02 12:08] LABS: Albumin 3.9 g/dL (3.5-5.0); Calcium 8.6 mg/dL (8.4-10.2); Potassium 3.7 mmol/L (3.5-5.1); Total Bilirubin 0.4 mg/dL (0.2-1.3)
--- NOTE | 2021-08-02 13:54 | US ---
EXAMINATION TYPE: US carotid duplex BILAT DATE OF EXAM: 08/02/2021 COMPARISON: 10/10/2018 CLINICAL HISTORY: 60-year-old male syncope. Covid 19 patient with syncopal episode. TECHNIQUE: Carotid duplex ultrasound examination. Indirect Doppler criteria was utilized. FINDINGS: EXAM MEASUREMENTS: RIGHT: Peak Systolic Velocity (PSV) cm/sec ----- Right CCA: 79.8 ----- Right ICA: 87.1 ----- Right ECA: 88.5 ICA/CCA ratio: 1.1 RIGHT: End Diastole cm/sec ----- Right CCA: 28.9 ----- Right ICA: 30.4 ----- Right ECA: 18.8 LEFT: Peak Systolic Velocity (PSV) cm/sec ----- Left CCA: 92.0 ----- Left ICA: 80.1 ----- Left ECA: 92.0 ICA/CCA ratio: 0.9 LEFT: End Diastole cm/sec ----- Left CCA: 35.2 ----- Left ICA: 32.5 ----- Left ECA: 22.0 VERTEBRALS (direction of flow): Right Vertebral: Antegrade Left Vertebral: Antegrade Rhythm: Normal Ground Crew Linesman notes: Mixed plaque is seen at right ICA and mild intimal wall plaque is imaged proximal left ICA. PSV is wnl bilaterally. IMPRESSION: No hemodynamically significant internal carotid artery stenosis on either side. Criteria for Assigning % of Stenosis / Diameter reduction (Estimation based on the indirect measurements of the internal carotid artery velocities (ICA PSV). 1. Normal (no stenosis)=ICA PSV < 125 cm/s: ratio < 2.0: ICA EDV<40 cm/s. 2. Less than 50% stenosis=ICA PSV < 125 cm/s: ratio < 2.0: ICA EDV<40 cm/s. 3. 50 to 69% stenosis=ICA PSV of 125 to 230 cm/s: ration 2.0 ? 4.0: ICA EDV 40-100 cm/s. 4. Greater than 70% stenosis to near occlusion= ICA PSV > 230 cm/s: ratio > 4.0: ICA EDV > 100 cm/s. 5. Near occlusion= ICA PSV velocities may be low or undetectable: variable ratio and ICA EDV. 6. Total occlusion=unable to detect flow.
[2021-08-02 14:05] LABS: HCT 46.5 % (39.0-53.0); HGB 15.3 gm/dL (13.0-17.5); MCH 32.7 pg (25.0-35.0); MCHC 32.9 g/dL (31.0-37.0); MCV 99.2 fL (80.0-100.0); Platelet Count 121 k/uL (150-450); RBC 4.69 m/uL (4.30-5.90); RDW 12.4 % (11.5-15.5); WBC 4.9 k/uL (3.8-10.6)
[2021-08-02 15:36] LABS: Lymphocytes # (M) 0.83 k/uL (1.0-4.8); Monocytes # (M) 1.03 k/uL (0-1.0); Neutrophils # (M) 3.04 k/uL (1.3-7.7); Neutrophils % (M) 62 %; Nucleated Red Blood Cells 0 /100 WBC (0-0); Total Cells Counted 100
[2021-08-02] MEDS: LOSARTAN 50 MG TAB PO SCH (17:12)
--- NOTE | 2021-08-02 17:15 | CT ---
EXAMINATION TYPE: CT angio chest DATE OF EXAM: 08/02/2021 COMPARISON: None HISTORY: covid, elevated dimer CT DLP: 338.6 mGycm Automated exposure control for dose reduction was used. CONTRAST: Performed with IV Contrast, patient injected with 100 mL of Isovue 370. There are 3-D post processed images. There is no mediastinal adenopathy. Thoracic aorta is intact. There is no aneurysm or dissection. The ascending aorta measures 3.5 cm. There are no hilar masses. There is normal contrast opacification o f the pulmonary arteries. There are no filling defects. The lungs are clear of infiltrate. There is no evidence of a pulmonary mass. There is minimal subsegm ental atelectasis left lung base. There is 2 cm cyst in the superior right lobe of the liver. Thoracic spine is intact. There is no com pression fracture. Sternum is intact. I see no bony destructive process. IMPRESSION: Negative exam. No evidence of pulmonary embolism. Subsegmental atelectasis left lung base.
[2021-08-02] MEDS: FLUTICASONE 50MCG/SPRAY NASAL 16GM EA NOSTRIL SCH (21:52)
[2021-08-03] MEDS: ZINC SULFATE 220 MG CAP PO SCH (09:12)
[2021-08-03] MEDS: LOSARTAN 50 MG TAB PO SCH (09:13)
[2021-08-03] MEDS: ASCORBIC ACID 500 MG TAB PO SCH (09:13)
[2021-08-03] MEDS: MAGNESIUM OXIDE 400 MG TAB PO SCH (09:13)
[2021-08-03] MEDS: FLUTICASONE 50MCG/SPRAY NASAL 16GM EA NOSTRIL SCH ×2 (09:16→20:52)
[2021-08-03 13:46] LABS: Glucose,Whole Blood 138 mg/dL (75-99)
--- NOTE | 2021-08-03 14:07 | P.PN ---
Subjective Progress Note Date: 08/02/21 Joshua Machado is a year old male who presented to [facility] emergency room with a chief complaint of syncope, patient stated that he was at home going to the bathroom when he felt flushing in the face and numbness in the tips of his fingers and then he passed out and fell to the floor he states that he hit his head on the toilet, he regained consciousness after an unknown period of time he called EMS and was brought into emergency room. He was evaluated in the emergency room vital examination on presentation revealed a temperature of 98.2 pulse 76 respiration 22 blood pressure 190/95 pulse ox 95% on room air Laboratory data revealed a white blood count of 7.7 hemoglobin 14.7 platelet count 165 sodium 128 potassium 4.0 chloride 95 CO2 25 BUN 15 creatinine 0.95 COVID-19 PCR testing was positive Testing in the emergency room revealed EKG done in the emergency room revealed normal sinus rhythm with incomplete right bundle branch block, chest x-ray done in the emergency room revealed normal findings, computed tomography scan of the brain was done in the emergency room due to history of fall with head injury and revealed normal findings. Patient was admitted to medical floor for further evaluation and treatment On 08/02/2021 patient was seen and examined on the medical floor he is alert and oriented 3 in no apparent distress he is still complaining of vague symptoms of feeling flushed and having numbness in the tips of his fingers otherwise he denies any symptoms there is no chest pain no shortness of breath no cough d- dimer was slightly elevated at this time will check CT angiogram of the chest to rule out pulmonary embolism Objective - Vital Signs Vital signs: Vital Signs Temp 98 F 08/02/21 09:59 Pulse 62 08/02/21 09:59 Resp 18 08/02/21 09:59 BP 135/81 08/02/21 09:59 Pulse Ox 98 08/02/21 09:59 Intake & Output 08/01/21 08/02/21 08/02/21 18:59 06:59 18:59 Intake Total 540 Balance 540 Intake: Oral 540 Other: Voiding Method Toilet # Voids 3 2 - Exam In general patient is alert and oriented x 3 in no distress HEENT head normocephalic and atraumatic Neck is supple no JVD no goiter no lymphadenopathy no carotid bruit Chest examination is clear to auscultation no crackles no wheezing Cardiac exam reveals regular heart sounds S1 and S2 no gallops no murmurs Abdomen is soft nontender no organomegaly with normal bowel sounds Extremity exam reveals no edema no cyanosis or clubbing Neurological examination reveals no gross focal deficits - Labs CBC & Chem 7: 08/02/21 11:31 08/02/21 11:31 Labs: Abnormal Lab Results - Last 24 Hours (Table) 08/02/21 Range/Units 09:39 POC Glucose (mg/dL) 144 H (75-99) mg/dL Assessment and Plan Plan: Episode of syncope Hyponatremia on presentation COVID-19 PCR testing positive on presentation Underlying history of hypertension At this time patient will be admitted to telemetry floor Cardiology consultation was requested in regards to syncope, will check echocardiogram and carotid Doppler Pulmonary critical care consultation requested in that regard to positive COVID- 19 PCR testing Will follow closely
--- NOTE | 2021-08-03 14:09 | P.PN ---
Subjective Progress Note Date: 08/03/21 Joshua Machado is a year old male who presented to [facility] emergency room with a chief complaint of syncope, patient stated that he was at home going to the bathroom when he felt flushing in the face and numbness in the tips of his fingers and then he passed out and fell to the floor he states that he hit his head on the toilet, he regained consciousness after an unknown period of time he called EMS and was brought into emergency room. He was evaluated in the emergency room vital examination on presentation revealed a temperature of 98.2 pulse 76 respiration 22 blood pressure 190/95 pulse ox 95% on room air Laboratory data revealed a white blood count of 7.7 hemoglobin 14.7 platelet count 165 sodium 128 potassium 4.0 chloride 95 CO2 25 BUN 15 creatinine 0.95 COVID-19 PCR testing was positive Testing in the emergency room revealed EKG done in the emergency room revealed normal sinus rhythm with incomplete right bundle branch block, chest x-ray done in the emergency room revealed normal findings, computed tomography scan of the brain was done in the emergency room due to history of fall with head injury and revealed normal findings. Patient was admitted to medical floor for further evaluation and treatment On 08/02/2021 patient was seen and examined on the medical floor he is alert and oriented 3 in no apparent distress he is still complaining of vague symptoms of feeling flushed and having numbness in the tips of his fingers otherwise he denies any symptoms there is no chest pain no shortness of breath no cough d- dimer was slightly elevated at this time will check CT angiogram of the chest to rule out pulmonary embolism On 08/03/2021 patient was seen and examined on the medical floor he is alert and oriented 3 in no apparent distress initially patient had no symptoms CT angiogram of the chest was negative for pulmonary embolism patient was cleared by cardiology and pulmonary to be discharged home. Patient was discharged home however subsequently he started having new episodes of feeling faint and warm at that point discharge was held and the request for cardiology to reevaluate the patient in regard to his symptoms medication were reviewed will continue was current regimen at this time will follow closely Objective - Vital Signs Vital signs: Vital Signs Temp 98.3 F 08/03/21 13:30 Pulse 78 08/03/21 13:30 Resp 18 08/03/21 13:30 BP 129/79 08/03/21 13:30 Pulse Ox 95 08/03/21 13:30 Intake & Output 08/02/21 08/03/21 08/03/21 18:59 06:59 18:59 Other: Voiding Method Toilet Toilet Toilet # Voids 2 2 - Exam In general patient is alert and oriented x 3 in no distress HEENT head normocephalic and atraumatic Neck is supple no JVD no goiter no lymphadenopathy no carotid bruit Chest examination is clear to auscultation no crackles no wheezing Cardiac exam reveals regular heart sounds S1 and S2 no gallops no murmurs Abdomen is soft nontender no organomegaly with normal bowel sounds Extremity exam reveals no edema no cyanosis or clubbing Neurological examination reveals no gross focal deficits - Labs CBC & Chem 7: 08/02/21 11:31 08/02/21 11:31 Labs: Abnormal Lab Results - Last 24 Hours (Table) 08/02/21 08/03/21 Range/Units 11:31 13:27 Plt Count 121 L (150-450) k/uL Lymphocytes # (Manual) 0.83 L (1.0-4.8) k/uL Monocytes # (Manual) 1.03 H (0-1.0) k/uL POC Glucose (mg/dL) 138 H (75-99) mg/dL Assessment and Plan Plan: Episode of syncope Hyponatremia on presentation COVID-19 PCR testing positive on presentation Underlying history of hypertension At this time patient will be admitted to telemetry floor Cardiology consultation was requested in regards to syncope, will check echocardiogram and carotid Doppler Pulmonary critical care consultation requested in that regard to positive COVID- 19 PCR testing Will follow closely
--- NOTE | 2021-08-03 15:54 | P.PN ---
Subjective Progress Note Date: 08/03/21 Principal diagnosis: Syncope. This is a very pleasant 60-year-old male patient who follows with Dr. meneses as his primary care provider. He has a history of hypertension, anxiety. Nonsmoker. He presented to the emergency room on 07/31/2021 after having a syncopal episode at 3 AM earlier that same morning. He felt clammy and a burning sensation in his chest. He had gotten up to go the bathroom passed out and hit his head on the toilet. He initially didn't want to come to the hospital. He was having ongoing issues with dizziness feeling faint and clamminess and presented here for the same. Computed tomography scan of the brain revealed no acute abnormalities. X-ray revealed no acute abnormalities. EKG did not reveal any significant ST or T wave abnormalities. Echocardiogram revealed preserved left ventricular systolic function with ejection fraction 55-60%. No significant valvular abnormalities. White count 7.7. Hemoglobin 14.7. Sodium 128. Potassium 4.0. Creatinine 0.94. Troponin negative 1. Glucose 144. Craig virus by PCR positive. He is seen today in consultation on the observation unit. He is awake and alert in no acute distress. He is maintaining good O2 saturations in the 90s on room air. He's afebrile. Hemodynamically stable. Progress note dated 08/03/2021. 60-year-old male, who we saw yesterday in consultation. The patient was admitted with a diagnosis of syncope. Apparently, he was seen by his hospitalist today, and was going to be discharged home, but apparently when he got out of bed, he had a similar feeling of that he was going to pass out. The patient apparently became dizzy, and faint. He also had a clammy sensation. For that reason, the patient may not be discharged home. Currently, the patient's on room air. Saturations are 95%. He's not on any IV fluids. Coronavirus testing by PCR was positive. No new labs today. Objective - Vital Signs Vital signs: Vital Signs Temp 98.3 F 08/03/21 13:30 Pulse 78 08/03/21 13:30 Resp 18 08/03/21 13:30 BP 129/79 08/03/21 13:30 Pulse Ox 95 08/03/21 13:30 Intake & Output 08/02/21 08/03/21 08/03/21 18:59 06:59 18:59 Other: Voiding Method Toilet Toilet Toilet # Voids 2 2 1 - Exam No acute distress, oriented 3. Currently on room air. HEENT examination is grossly unremarkable. Neck supple. Full range of motion. No adenopathy thyromegaly or neck vein distention. Cardiovascular examination reveals regular rhythm rate. S1-S2 normal. No S3 or S4. No discernible murmur noted. Heart rate 78 bpm. Lungs reveal clear breath sounds. Breath sounds are equal bilaterally. No adventitious lung sounds including wheezes rhonchi or crackles. Room air saturation is 96%. Abdomen soft bowel sounds are heard. No masses or tenderness. Extremities are intact. No cyanosis clubbing or edema. Skin is without rash or lesion. Neurologic examination is brief but nonfocal. - Labs CBC & Chem 7: 08/02/21 11:31 08/02/21 11:31 Labs: Abnormal Lab Results - Last 24 Hours (Table) 08/03/21 Range/Units 13:27 POC Glucose (mg/dL) 138 H (75-99) mg/dL Assessment and Plan Assessment: Syncope, of unclear etiology, with a normal CT angiogram. Hyponatremia. Coronavirus infection, without significant pulmonary disease/pneumonia. History of hypertension. Plan: Plan dated 08/02/2021. The patient apparently was being considered for possible discharge. Apparently when he got out of bed, the patient a similar feeling like he was going to pass out. He became lightheaded and dizzy. He became flushed. He just felt uncomfortable, and laid back down in bed. The nurse was going to contact the primary hospitalist service, to determine whether or not the patient should actually be discharged. CT angiogram was negative. From the pulmonary standpoint, the patient stable. On room air, her saturations are 96%. We don't believe he has significant coronavirus associated pneumonia. Time with Patient: Less than 30
[2021-08-03] MEDS: ACETAMINOPHEN TAB 325 MG TAB PO PRN (22:15)
[2021-08-04] MEDS: ACETAMINOPHEN TAB 325 MG TAB PO PRN (06:12)
--- NOTE | 2021-08-04 08:42 | P.PN ---
Subjective HISTORY OF PRESENT ILLNESS: This is a 60-year-old male with a past medical history significant for hypertension. Patient does not follow with a family educator. We have been asked to see the patient in consultation for syncope. Patient presented to the hospital after having a syncopal episode yesterday morning after using the bathroom. The patient was found to be positive for Covid. He is unvaccinated. Patient states he has was not feeling well at home with some respiratory symptoms. He states he was sleeping in a different room at home due to not feeling well. He reports walking to the bathroom and the next thing he knows he woke up on the bathroom floor. Patient states he has been eating and drinking well. Echo reveals EF 55-60%, Mild MR, and Mild TR. Denies any previous episodes of syncope. Reports a history of Vertigo. 08/04/2021 We have been asked to re-evaluate the patient due to another episode of dizziness yesterday afternoon. Apparently they were getting ready to discharge him when this occurred. CTA was negative for PE with clear lungs. EF 55-60% with mild MR and mild TR. Blood pressure 157/91 heart rate 87 with temperature of 100.8. Telemetry tracings unremarkable. PHYSICAL EXAM: Thorough physical exam not completed secondary to limited evaluation/examination due to Covid19 ASSESSMENT: Acute Covid 19 Syncope Hyponatremia Hypertension History of vertigo PLAN: Telemetry tracings unremarkable for an acute arrhythmia. Ok for discharge from a cardiac perspective. Increase fluid intake. Follow up with Dr. Villanueva upon discharge and we will do an event monitor. Nurse practitioner note has been reviewed by physician. Signing provider agrees with the documented findings, assessment, and plan of care. Objective - Vital Signs Vital signs: Vital Signs Temp 100.8 F H 08/04/21 05:33 Pulse 87 08/04/21 05:33 Resp 15 08/04/21 05:33 BP 157/91 08/04/21 05:33 Pulse Ox 96 08/04/21 05:33 Intake & Output 08/03/21 08/04/21 08/04/21 18:59 06:59 18:59 Other: Voiding Method Toilet Toilet # Voids 1 1 - Labs CBC & Chem 7: 08/02/21 11:31 08/02/21 11:31 Labs: Abnormal Lab Results - Last 24 Hours (Table) 08/03/21 Range/Units 13:27 POC Glucose (mg/dL) 138 H (75-99) mg/dL
[2021-08-04] MEDS: MAGNESIUM OXIDE 400 MG TAB PO SCH (09:03)
[2021-08-04] MEDS: LOSARTAN 50 MG TAB PO SCH (09:03)
[2021-08-04] MEDS: FLUTICASONE 50MCG/SPRAY NASAL 16GM EA NOSTRIL SCH (09:03)
[2021-08-04] MEDS: ZINC SULFATE 220 MG CAP PO SCH (09:03)
[2021-08-04] MEDS: ASCORBIC ACID 500 MG TAB PO SCH (09:03)
[2021-08-04 09:21] LABS: African American GFR (CKD) 93.1 (60.0-200.0); Albumin 3.9 g/dL (3.8-4.9); Albumin/Globulin Ratio 1.56 (1.60-3.17); Anion Gap 13.6 mmol/L (10.00-18.00); BUN/Creat Ratio 10.9 Ratio (12.00-20.00); Blood Urea Nitrogen 10.9 mg/dL (9.0-27.0); Calcium 8.5 mg/dL (8.7-10.3); Carbon Dioxide 23.4 mmol/L (20.0-27.5); Globulin 2.5 g/dL (1.6-3.3); Non-African American GFR(CKD) 80.3 (60.0-200.0); Potassium 4.1 mmol/L (3.5-5.5); Total Bilirubin 0.4 mg/dL (0.30-1.20); Total Protein 6.4 g/dL (6.2-8.2)
[2021-08-04 10:12] VITALS: BP 126/75; PULSE 67; RESP 18; TEMP 97.9
[2021-08-04 10:26] LABS: Basophils # (A) 0.03 X 10*3/uL (0.00-0.10); Basophils % (A) 0.5 %; Eosinophils # (A) 0 X 10*3/uL (0.04-0.35); Eosinophils % (A) 0 %; HCT 44.5 % (39.6-50.0); HGB 14.8 g/dL (13.0-17.0); Lymphocytes % (A) 21.4 %; MCH 31.3 pg (27.0-32.0); MCHC 33.3 g/dL (32.0-37.0); MCV 94.1 fL (80.0-97.0); Mean Platelet Volume 10.6 fL (9.5-12.2); Monocytes % (A) 9.9 %; Neutrophils # (A) 4.13 X 10*3/uL (1.80-7.70); Neutrophils % (A) 67.9 %; Platelet Count 191 X 10*3/uL (140-440); RBC 4.73 X 10*6/uL (4.40-5.60); RDW 12.2 % (11.5-14.5); WBC 6.08 X 10*3/uL (4.50-10.00)
[2021-08-04 12:27] LABS: Glucose,Whole Blood 121 mg/dL (75-99)
--- NOTE | 2021-08-04 14:21 | P.DS ---
Providers Date of admission: 07/31/21 23:23 Expected date of discharge: 08/04/21 Attending physician: Seven Raymond Consults: 08/01/21 10:20 Consult Physician Routine Consulting Provider: Evelia Salazar Consult Reason/Comments: positive covid test Do you want consulting provider notified?: Yes 08/01/21 10:22 Consult Physician Routine Consulting Provider: Louisa Roberts Consult Reason/Comments: syncope Do you want consulting provider notified?: Yes 08/03/21 14:08 Consult Physician Routine Consulting Provider: [facility] Consult Reason/Comments: syncope Do you want consulting provider notified?: Yes Primary care physician: Sophie Porras [facility] Course: Diagnosis on discharge: Episode of syncope Hyponatremia on presentation COVID-19 PCR testing positive on presentation Underlying history of hypertension Hospital course: Joshua Machado is a year old male who presented to [facility] emergency room with a chief complaint of syncope, patient stated that he was at home going to the bathroom when he felt flushing in the face and numbness in the tips of his fingers and then he passed out and fell to the floor he states that he hit his head on the toilet, he regained consciousness after an unknown period of time he called EMS and was brought into emergency room. He was evaluated in the emergency room vital examination on presentation revealed a temperature of 98.2 pulse 76 respiration 22 blood pressure 190/95 pulse ox 95% on room air Laboratory data revealed a white blood count of 7.7 hemoglobin 14.7 platelet count 165 sodium 128 potassium 4.0 chloride 95 CO2 25 BUN 15 creatinine 0.95 COVID-19 PCR testing was positive Testing in the emergency room revealed EKG done in the emergency room revealed normal sinus rhythm with incomplete right bundle branch block, chest x-ray done in the emergency room revealed normal findings, computed tomography scan of the brain was done in the emergency room due to history of fall with head injury and revealed normal findings. Patient was admitted to medical floor for further evaluation and treatment On 08/02/2021 patient was seen and examined on the medical floor he is alert and oriented 3 in no apparent distress he is still complaining of vague symptoms of feeling flushed and having numbness in the tips of his fingers otherwise he denies any symptoms there is no chest pain no shortness of breath no cough d- dimer was slightly elevated at this time will check CT angiogram of the chest to rule out pulmonary embolism On 08/03/2021 patient was seen and examined on the medical floor he is alert and oriented 3 in no apparent distress initially patient had no symptoms CT angiogram of the chest was negative for pulmonary embolism patient was cleared by cardiology and pulmonary to be discharged home. Patient was discharged home however subsequently he started having new episodes of feeling faint and warm at that point discharge was held and the request for cardiology to reevaluate the patient in regard to his symptoms medication were reviewed will continue was current regimen at this time will follow closely On 08/04/2021 patient was seen and examined on the medical floor he is alert and oriented 3 in no apparent distress he is still having episodes of low-grade fever otherwise he denies any complaints there is no dizziness no chest pain or shortness of breath no nausea or vomiting no abdominal pain no diarrhea and no urinary symptoms. Patient was reevaluated by cardiology and was cleared for discharge, he was given a prescription for losartan and a baby aspirin, he was instructed to return to the hospital if having any severe dizziness or any new episodes of syncope, otherwise follow-up with Dr. Porras within one week Plan - Discharge Summary Discharge Rx Participant: No New Discharge Prescriptions: New Losartan [Cozaar] 50 mg PO DAILY tab Fluticasone Nasal [place] [Flonase Nasal [place]] 1 spray EA NOSTRIL BID gm Ibuprofen [Motrin] 400 mg PO Q6HR PRN tab PRN Reason: Mild Pain Or Fever > 100.5 Aspirin 81 mg PO DAILY 30 Days #30 tab Acetaminophen Tab [Tylenol] 650 mg PO Q6HR PRN tab PRN Reason: Mild Pain Or Fever > 100.5 Continue Turmeric Root Extract [Turmeric] 500 mg PO DAILY Ubidecarenone [Co Q-10] 200 mg PO DAILY Magnesium 400 mg PO DAILY Ascorbic Acid [Vitamin C] 1,000 mg PO DAILY Super Enzymes 1 tab PO DAILY Quercetin With Bromelain 1 tab PO DAILY Zinc 50 mg PO DAILY Methylsulfonylmethane [MSM] 900 mg PO DAILY Vitamin D3 + K2 1 tab PO DAILY Discontinued Triamterene/Hydrochlorothiazid [Triamterene-Hctz 37.5-25 mg Tb] 1 tab PO DAILY Discharge Medication List Ascorbic Acid [Vitamin C] 1,000 mg PO DAILY 07/02/19 [History] Magnesium 400 mg PO DAILY 07/02/19 [History] Turmeric Root Extract [Turmeric] 500 mg PO DAILY 07/02/19 [History] Ubidecarenone [Co Q-10] 200 mg PO DAILY 07/02/19 [History] Methylsulfonylmethane [MSM] 900 mg PO DAILY 07/31/21 [History] Quercetin With Bromelain 1 tab PO DAILY 07/31/21 [History] Super Enzymes 1 tab PO DAILY 07/31/21 [History] Vitamin D3 + K2 1 tab PO DAILY 07/31/21 [History] Zinc 50 mg PO DAILY 07/31/21 [History] Acetaminophen Tab [Tylenol] 650 mg PO Q6HR PRN tab 08/03/21 [Rx] Fluticasone Nasal [place] [Flonase Nasal [place]] 1 spray EA NOSTRIL BID gm 08/03/21 [Rx] Ibuprofen [Motrin] 400 mg PO Q6HR PRN tab 08/03/21 [Rx] Losartan [Cozaar] 50 mg PO DAILY tab 08/03/21 [Rx] Aspirin 81 mg PO DAILY 30 Days #30 tab 08/04/21 [Rx] Follow up Appointment(s)/Referral(s): Sophie Porras MD [Primary Care Provider] - 1-2 days Kushal Villanueva DO [STAFF PHYSICIAN] - 4 Weeks (Office closed. Please call and make appointment. ) Patient Instructions/Handouts: Coronavirus Disease 2019 (COVID-19), Hyponatremia (DC), Syncope (DC)
== END 2021-08-04 15:40 | disposition home or self-care (01) | DRG 178 ==
LOC: EC 19:21 → 5NMEDONC 23:23 → 4SSUR 08-01 06:04 → 1SOBS 08-01 19:34 → 4SSUR 08-02 16:01
PROVIDERS: ADMIT Internal Medicine; ATTEND Internal Medicine
DX: U07.1 COVID-19 (principal); E87.1 Hypo-osmolality and hyponatremia; F41.9 Anxiety disorder, unspecified; I10 Essential (primary) hypertension; I45.10 Unspecified right bundle-branch block; T50.2X5A Adverse effect of carbonic-anhydrase inhibitors, benzothiadiazides and other diuretics, initial encounter; Z91.81 History of falling; Z80.3 Family history of malignant neoplasm of breast; Z80.51 Family history of malignant neoplasm of kidney; Z87.891 Personal history of nicotine dependence; I08.1 Rheumatic disorders of both mitral and tricuspid valves; Z79.899 Other long term (current) drug therapy
CPT/HCPCS: 36415; 70450; 71046; 71275; 80053; 81001; 83735; 83935; 84300; 84484; 85025; 85379; 85610; 85730; 87635; 90471; 90715; 93005; 93306; 93880; 94760; 96360; 99285